=== PATIENT | female | born 1985 | race American Indian/Alaskan Native ===

== ENCOUNTER 2016-09-23 19:27 | Emergency (ER) | payer SELFPAY ==
[2016-09-23 21:19] LABS: Basophils % (Auto) 0.4 % (0.0-1.8); Eosinophils % (Auto) 0.8 % (0.0-4.3); Hemoglobin 12.7 gm/dl (10.1-14.3); Mean Corpuscular HGB Conc 33 % (30-34); Mean Corpuscular Hemoglobin 33 pg (28-32); Mean Corpuscular Volume 97 fl (79-97); Platelet Count 191 K/mm3 (140-440); Red Blood Count 3.91 M/mm3 (3.65-5.03); Red Cell Distribution Width 13.7 % (13.2-15.2); White Blood Count 7.7 K/mm3 (4.5-11.0)
[2016-09-23 21:43] LABS: Alanine Aminotransferase 10 units/L (7-56); Albumin 4.5 g/dL (3.9-5); Albumin/Globulin Ratio 1.9 %; Alkaline Phosphatase 37 units/L (35-129); Anion Gap 15 mmol/L; BUN/Creatinine Ratio 28.33; Blood Urea Nitrogen 17 mg/dL (7-17); Calcium 8.8 mg/dL (8.4-10.2); Carbon Dioxide 27 mmol/L (22-30); Chloride 99.4 mmol/L (98-107); Glucose 77 mg/dL (65-100); Lipase 36 units/L (13-60); Potassium 3.6 mmol/L (3.6-5.0); Sodium 138 mmol/L (137-145); Total Protein 6.9 g/dL (6.3-8.2)
[2016-09-23 22:04] LABS: Bilirubin,Urine NEG (Negative); Blood,Urine SM (Negative); Ketones,Urine NEG (Negative); Leukocyte Esterase,Urine SM (Negative); Mucus,Urine 1+ /HPF; Nitrite,Urine NEG (Negative); Protein,Urine <15 mg/dL mg/dL (Negative); Urobilinogen,Urine < 2.0 mg/dL (<2.0)
[2016-09-24 01:16] VITALS: BP 126/90
--- NOTE | 2016-09-25 19:33 | ED Elopement Review ---
ED Pt Elopement review - Results review Lab results: Laboratory Tests 09/23/16 09/23/16 09/23/16 21:08 21:08 21:30 WBC 7.7 RBC 3.91 Hgb 12.7 Hct 38.0 MCV 97 MCH 33 H MCHC 33 RDW 13.7 Plt Count 191 Lymph % (Auto) 35.6 H [place] % (Auto) 9.6 H Eos % (Auto) 0.8 Baso % (Auto) 0.4 Lymph # 2.7 [place] # 0.7 Eos # 0.1 Baso # 0.0 Seg Neutrophils % 53.6 Seg Neutrophils # 4.1 Sodium 138 Potassium 3.6 Chloride 99.4 Carbon Dioxide 27 Anion Gap 15 BUN 17 Creatinine 0.6 L Estimated GFR > 60 BUN/Creatinine Ratio 28.33 Glucose 77 Calcium 8.8 Total Bilirubin 0.60 AST 10 ALT 10 Alkaline Phosphatase 37 Total Protein 6.9 Albumin 4.5 Albumin/Globulin Ratio 1.9 Lipase 36 Urine Color Yellow Urine Turbidity Clear Urine pH 5.0 Ur Specific [place] 1.019 Urine Protein <15 mg/dl Urine Glucose (UA) Neg Urine Ketones Neg Urine Blood Sm Urine Nitrite Neg Urine Bilirubin Neg Urine Urobilinogen < 2.0 Ur Leukocyte Esterase Sm Urine WBC (Auto) 7.0 H Urine RBC (Auto) 3.0 U Epithel Cells (Auto) 5.0 Calcium Oxalate Crystal 1+ Urine Mucus 1+ Urine HCG, Qual Negative - Call Back decision Pt Call Back Decision: No action required
== END 2016-09-24 04:35 | disposition left against medical advice (07) ==
LOC: ED 19:27
DX: R10.9 Unspecified abdominal pain (principal); Z53.21 Procedure and treatment not carried out due to patient leaving prior to being seen by health care provider
CPT/HCPCS: 36415; 80053; 81001; 81025; 83690; 85025; 93005; 93010